=== PATIENT | male | born 1990 | race African-American/Black ===

== ENCOUNTER 2018-11-26 10:29 | Emergency (ER) | payer SELFPAY ==
--- NOTE | 2018-11-26 11:38 | RAD ---
XR Ankle Rt 3 View STANDARD: 11/26/2018 11:18 AM CLINICAL INDICATION: Injury, pain COMPARISON: None. FINDINGS: Fracture:No fracture. Arthropathy:Mild osteophytosis is seen at the ankle and hindfoot. Incidental findings:There is chronic appearing heterotopic density at the lateral aspect of the dista l diaphysis of the tibia IMPRESSION: 1. No acute osseous abnormality. 2. Chronic osseous findings of the right ankle and distal right leg, as above.
== END 2018-11-26 12:00 | disposition home or self-care (01) ==
LOC: NAV ERS 10:29
DX: S93.401A Sprain of unspecified ligament of right ankle, initial encounter (principal); F17.210 Nicotine dependence, cigarettes, uncomplicated; X50.1XXA Overexertion from prolonged static or awkward postures, initial encounter
CPT/HCPCS: 99001

== ENCOUNTER 2020-11-12 10:22 | Emergency (ER) | payer SELFPAY ==
[2020-11-12] MEDS ORDERED: Lidocaine 1% (PF) 30 ML VIAL ONE (11:06)
== END 2020-11-12 11:45 | disposition home or self-care (01) ==
LOC: NAV ERS 10:22
DX: L03.113 Cellulitis of right upper limb (principal); L02.413 Cutaneous abscess of right upper limb; F17.210 Nicotine dependence, cigarettes, uncomplicated
CPT/HCPCS: 10060; 87070; 87205; J2001

== ENCOUNTER 2021-04-20 07:17 | Emergency (ER) | payer SELFPAY ==
[2021-04-20] MEDS ORDERED: Ibuprofen 800 MG TAB ONE (07:31)
[2021-04-20] MEDS ORDERED: Ondansetron ODT 4 MG TAB ONE (07:39)
[2021-04-20 14:28] LABS: SARS-CoV-2 PCR by NAA DETECTED (NotDetected)
== END 2021-04-20 09:03 | disposition home or self-care (01) ==
LOC: NAV ERS 07:17
DX: U07.1 COVID-19 (principal); F17.210 Nicotine dependence, cigarettes, uncomplicated
CPT/HCPCS: 99284; Q0162; U0003; U0005